=== PATIENT | female | born 1995 | race Caucasian/White ===

== ENCOUNTER → 2022-06-26 | Outpatient (CLI) | payer OTHER | LOC: M WHC 08:02 | PROVIDERS: ATTEND Physician Assistant | DX: K80.20 Calculus of gallbladder without cholecystitis without obstruction (principal); Z87.19 Personal history of other diseases of the digestive system ==

== ENCOUNTER → 2022-08-17 | Outpatient (REF) | payer OTHER | LOC: M SFHCWAGY 13:26 | PROVIDERS: ATTEND Nurse Practitioner Family | DX: Z12.4 Encounter for screening for malignant neoplasm of cervix (principal) | CPT/HCPCS: 87624; G0123 ==

== ENCOUNTER → 2023-08-23 | Outpatient (REF) | payer OTHER, BC | LOC: M SFHCWAGY 12:46 | PROVIDERS: ATTEND Nurse Practitioner Family | DX: N94.10 Unspecified dyspareunia (principal) ==

== ENCOUNTER → 2024-08-30 | Outpatient (REF) | payer BC ==
[2024-09-01 14:22] LABS: HPV APTIMA Not Detected (Not Detected)
== END ==
LOC: M SFHCWAGY 10:13
PROVIDERS: ATTEND Nurse Practitioner Family
DX: Z01.419 Encounter for gynecological examination (general) (routine) without abnormal findings (principal); Z77.9 Other contact with and (suspected) exposures hazardous to health
CPT/HCPCS: 87624; G0123